=== PATIENT | male | born 1945 | race Caucasian/White ===

== ENCOUNTER 2018-03-03 13:06 | Inpatient (IN) | payer MEDICARE ==
[~2018-03-03] VITALS: Ht 182.9 cm; Wt 96.6 kg
[2018-03-03] MEDS ORDERED: DICL75TA5 PO (13:30)
[2018-03-03] MEDS ORDERED: TAMS-12 PO (13:30)
[2018-03-03] MEDS ORDERED: DOCU-141 PO (13:30)
[2018-03-03] MEDS ORDERED: LORA0.5T PO (13:30)
[2018-03-03] MEDS ORDERED: OXYC30TA2 PO (13:30)
[2018-03-03] MEDS ORDERED: VERA80TA2 PO (13:30)
[2018-03-03] MEDS ORDERED: ATEN25TA PO (13:30)
[2018-03-03] MEDS ORDERED: CARI350T PO (13:30)
[2018-03-03] MEDS ORDERED: SERT100T PO (13:30)
[2018-03-03 13:32] LABS: BASOPHILS % (AUTO) 0.4 % (0.0-2.0); EOSINOPHILS % (AUTO) 0.6 % (0.0-6.0); HEMATOCRIT 39 % (39-51); HEMOGLOBIN 13.7 g/dL (13.5-17.5); LYMPHOCYTES # (AUTO) 1.4 /CMM (0.8-4.8); LYMPHOCYTES % (AUTO) 16.3 % (20.0-44.0); MEAN CORPUSCULAR HEMOGLOBIN 30 PG (26.0-33.0); MEAN CORPUSCULAR HGB CONC 35 g/dl (31.0-36.0); MEAN CORPUSCULAR VOLUME 85 fL (80-96); MONOCYTES # (AUTO) 0.7 /CMM (0.1-1.30); MONOCYTES % (AUTO) 7.7 % (2.0-12.0); NEUTROPHILS # (AUTO) 6.4 /CMM (1.8-8.9); PLATELET COUNT (AUTO) 180 /CMM (150-450); RDW COEFFICIENT OF VARIATION 13.7 (11.5-15.0); RED BLOOD CELL COUNT(AUTO) 4.63 MIL/uL (4.5-6.0); WHITE BLOOD COUNT (AUTO) 8.6 K/uL (4.3-11.0)
[2018-03-03 13:41] LABS: CALCIUM, SERUM 9.3 mg/dL (8.5-10.1); CARBON DIOXIDE 24 mmol/L (21-32); CHLORIDE 106 mmol/L (98-107); CREATININE 1.3 mg/dL (0.6-1.3); GLUCOSE 161 mg/dL (74-106); POTASSIUM 4.1 mmol/L (3.5-5.1); SODIUM SERUM 139 mmol/L (136-145); UREA NITROGEN, BLOOD 29 mg/dL (7-18)
[2018-03-03 13:48] LABS: ACETAMINOPHEN 0 ug/ml (10-30); ALANINE AMINOTRANSFERASE 41 U/L (12-78); ALBUMIN 3.7 g/dL (3.4-5.0); ALCOHOL, BLOOD < 3 mg/dL (0-0); ALKALINE PHOSPHATASE 79 U/L (46-116); ASPARTATE AMINOTRANSFERASE 24 U/L (15-37); BILIRUBIN,DIRECT 0.1 mg/dL (0.0-0.2); BILIRUBIN,TOTAL 0.5 mg/dL (0.2-1.0); SALICYLATE 1.4 mg/dL (2.8-20.0); TOTAL PROTEIN, SERUM 7.3 g/dL (6.4-8.2)
[2018-03-03 14:40] LABS: BILIRUBIN,URINE SMALL (NEGATIVE); BLOOD, URINE Negative Ery/uL (NEGATIVE); KETONES,URINE Negative (NEGATIVE); LEUKOCYTE ESTERASE ,URINE Negative (NEGATIVE); NITRITE, URINE Negative (NEGATIVE); PH,URINE 5.5 (5.0-8.0); PROTEIN,URINE 30 mg/dl (NEGATIVE); UGLUCOSE Negative (NEGATIVE); UROBILINOGEN,URINE 0.2 EU/dL (0.2)
[2018-03-03 14:42] LABS: APPEARANCE,URINE Slightly Hazy (CLEAR); COLOR,URINE Dark Yellow (YELLOW)
[2018-03-03 14:57] LABS: BACTERIA,URINE None seen /HPF (None Seen); MUCUS,URINE Few /LPF (None Seen); RBC,URINE 0-3 /HPF (0-2); SQUAMOUS EPITHELIAL CELL,UR Few /HPF (None Seen)
[2018-03-03 16:00] VITALS: BP 147/93
[2018-03-03] MEDS ORDERED: MAGNESIUM HYDROXIDE 30 ML UDC PO PRN (16:00)
[2018-03-03] MEDS ORDERED: MAG HYDROX/AL HYDROX/SIMETH 30 ML UDC PO PRN (16:00)
[2018-03-03] MEDS ORDERED: ACETAMINOPHEN 325 MG TABLET PO PRN (16:00)
[2018-03-03] MEDS: VERAPAMIL HCL 80 MG TABLET PO SCH (16:53)
[2018-03-03] MEDS: DOCUSATE SODIUM 100 MG CAPSULE PO SCH (16:53)
[2018-03-03] MEDS ORDERED: LORAZEPAM 1 MG TABLET PO PRN (19:00)
[2018-03-03 20:00] VITALS: BP 134/59
[2018-03-03] MEDS: SERTRALINE HCL 50 MG TABLET PO SCH (21:54)
[2018-03-04] MEDS: TEMAZEPAM 15 MG CAPSULE PO PRN ×2 (01:04→21:26)
[2018-03-04] MEDS: HYDROCODONE/APAP 5/325MG 1 EACH TABLET PO PRN ×3 (01:04→16:51)
[2018-03-04 07:17] LABS: CHOLESTEROL 203 mg/dL (<200); HDL CHOLESTEROL 31 mg/dL (40-60); LDL 142 mg/dL (0-99); TRIGLYCERIDES 204 mg/dL (30-150)
[2018-03-04 07:22] LABS: ALANINE AMINOTRANSFERASE 44 U/L (12-78); ALBUMIN 3.4 g/dL (3.4-5.0); ALKALINE PHOSPHATASE 71 U/L (46-116); ASPARTATE AMINOTRANSFERASE 29 U/L (15-37); BILIRUBIN,TOTAL 0.5 mg/dL (0.2-1.0); CALCIUM, SERUM 8.5 mg/dL (8.5-10.1); CARBON DIOXIDE 25 mmol/L (21-32); CHLORIDE 107 mmol/L (98-107); CREATININE 1.3 mg/dL (0.6-1.3); GLUCOSE 103 mg/dL (74-106); POTASSIUM 4.1 mmol/L (3.5-5.1); SODIUM SERUM 141 mmol/L (136-145); TOTAL PROTEIN, SERUM 6.7 g/dL (6.4-8.2); UREA NITROGEN, BLOOD 28 mg/dL (7-18)
[2018-03-04] MEDS: TAMSULOSIN 0.4 MG CAP.SR.24H PO SCH (08:34)
[2018-03-04] MEDS: VERAPAMIL HCL 80 MG TABLET PO SCH ×2 (08:34→16:49)
[2018-03-04] MEDS: ATENOLOL 25 MG TABLET PO SCH (08:34)
[2018-03-04] MEDS: DOCUSATE SODIUM 100 MG CAPSULE PO SCH ×2 (08:34→16:49)
[2018-03-04 16:00] VITALS: BP 139/89
[2018-03-04 20:00] VITALS: BP 146/85
[2018-03-04] MEDS: SERTRALINE HCL 50 MG TABLET PO SCH (21:25)
[2018-03-05] MEDS: HYDROCODONE/APAP 5/325MG 1 EACH TABLET PO PRN (01:57)
[2018-03-05 08:00] VITALS: BP 163/121
[2018-03-05] MEDS: VERAPAMIL HCL 80 MG TABLET PO SCH (09:00)
[2018-03-05] MEDS: DOCUSATE SODIUM 100 MG CAPSULE PO SCH (10:32)
[2018-03-05] MEDS: TAMSULOSIN 0.4 MG CAP.SR.24H PO SCH (10:33)
[2018-03-05 10:34] VITALS: BP 163/121
[2018-03-05] MEDS: ATENOLOL 25 MG TABLET PO SCH (10:34)
== END 2018-03-05 12:15 | disposition home or self-care (01) | DRG 885 ==
LOC: ER 13:13 → GPS 14:36
PROVIDERS: ADMIT Psychiatry & Neurology Psychiatry; ATTEND Nurse Practitioner Acute Care
DX: F33.2 Major depressive disorder, recurrent severe without psychotic features (principal); N17.0 Acute kidney failure with tubular necrosis; G89.4 Chronic pain syndrome; I10 Essential (primary) hypertension; M19.90 Unspecified osteoarthritis, unspecified site; F29 Unspecified psychosis not due to a substance or known physiological condition; N40.0 Benign prostatic hyperplasia without lower urinary tract symptoms; Z91.5 Personal history of self-harm; Z79.899 Other long term (current) drug therapy; Z96.642 Presence of left artificial hip joint; Z73.6 Limitation of activities due to disability
CPT/HCPCS: 36415; 80048-TC; 80053-TC; 80061-TC; 80076-TC; 80305; 81000-TC; 85025-TC; 87081-TC; A4606; G0480; Z7610